=== PATIENT | female | born 1980 | race Caucasian/White ===

== ENCOUNTER 2019-08-19 22:39 | Emergency (ER) | payer SELFPAY ==
[~2019-08-19] VITALS: Ht 170.2 cm; Wt 63.5 kg
--- NOTE | 2019-08-19 22:39 | NUR ---
ED Nurse Note: pt CASIE HERNAN [id number] from [facility] [place] c/o abd px that radiates to back x 3 days. pt denies blood in urine at this time or dysuria. per EMS pt was vomiting on scene, she was seen at [facility] for similar symptoms yesterday. she also is c/o MAXWELL. pt ios very restless but follows commands and answers questions coherently
--- NOTE | 2019-08-19 22:43 | NUR ---
ED Nurse Note: pt able to ambulate to restroom with steady gait to obtain urine specimen. Dr. Graham placed 20 g IV to pt's L EJ. patent, intact and flushing well.
[2019-08-19] MEDS ORDERED: Morphine Sulfate 4mg/ml Inj (IV USE ONLY) IVP ONE (22:45)
[2019-08-19 22:53] VITALS: BP 145/105
--- NOTE | 2019-08-19 22:53 | Emergency Room Report ---
History of Present Illness General Chief Complaint: Abdominal Pain Source: Patient Present Illness HPI This is a 38-year-old female who has no medical history. She does have a history of anxiety. She presents with complaint abdominal pain. She said was ongoing for 3 days but she has continued vomiting. She also still having diarrhea now. She was just at [facility] last night. She claimed they did not do anything other give her Zofran pill and discharge her. She said pain is 10 out of 10. Diffuse in nature. Vomiting is nonbloody nonbilious. Now just retching. Diarrhea is watery. Denies any alcohol or drug use. I called [facility] and she was there last time and discharge this morning. She had work-up including blood work, urine and CT scan. They were negative. Patient said her symptoms only started 3 days ago. She is currently homeless and just moved here from [facility]. She says she never been to another hospital before this. Allergies: Coded Allergies: HALOPERIDOL (Verified Allergy, Unknown, 08/19/19) COVID-19 Screening Contact w/high risk pt: No Experienced COVID-19 symptoms?: No COVID-19 Testing performed TUBE ROLLER: No Patient History Past Medical History: see triage record, old chart reviewed, psych hx Past Surgical History: other - ectopic Pertinent Family History: none Social History: Denies: smoking, alcohol use, drug use Now: No Immunizations: other Reviewed Nursing Documentation: PMH: Agreed; PSxH: Agreed Review of Systems Eye: Denies: eye pain, blurred vision ENT: Denies: ear pain, nose congestion, throat swelling Respiratory: Denies: cough, shortness of breath Cardiovascular: Denies: chest pain, palpitations Gastrointestinal: Reports: abdominal pain, diarrhea, nausea, vomiting Musculoskeletal: Denies: back pain, joint pain Skin: Denies: rash Neurological: Denies: headache, numbness Endocrine: Denies: increased thirst, increased urine Hematologic/Lymphatic: Denies: easy bruising All Other Systems: negative except mentioned in HPI Physical Exam Vital Signs Date Time Temp Pulse Resp B/P (MAP) Pulse Ox O2 Delivery O2 Flow Rate FiO2 08/19/19 22:35 98.4 71 18 145/105 (118) 99 Room Air Vitals with high blood pressure Sp02 EP Interpretation: reviewed, normal General Appearance: well appearing, no apparent distress, alert Head: normocephalic, atraumatic Eyes: bilateral eye PERRL, bilateral eye EOMI ENT: hearing grossly normal, normal pharynx Neck: full range of motion, supple, no meningismus Respiratory: chest non-tender, lungs clear, normal breath sounds Cardiovascular #1: regular rate, rhythm, no murmur Gastrointestinal: normal bowel sounds, non tender, no mass, no organomegaly, no bruit, non-distended Musculoskeletal: back normal, normal range of motion, gait/station normal, other - She has scabbing all over her body on arms and legs from skin picking. She states she did this because she is nervous. Denies any meth use. Psychiatric: anxious Medical Decision Making Diagnostic Impression: Primary Impression: Abdominal pain Qualified Codes: R10.84 - Generalized abdominal pain Additional Impression: Nausea and vomiting in adult ER Course This patient presents with abdominal pain with nausea and vomiting. She has no vomiting here. Labs unremarkable. I did not do any CT because she just had one done 24 hours ago at [facility] and was normal. Patient hydrated here. Will discharge home. Last Vital Signs Date Time Temp Pulse Resp B/P (MAP) Pulse Ox O2 Delivery O2 Flow Rate FiO2 08/19/19 22:35 98.4 71 18 145/105 (118) 99 Room Air Status: improved Disposition: HOME, SELF-CARE Condition: Stable Scripts Ondansetron (Zofran) 4 Mg Tablet 4 MG ORAL Q6H PRN for Nausea & Vomiting, #10 TAB 0 Refills Prov: Ananda Graham MD 08/20/19 Patient Instructions: Abdominal Pain, Adult Additional Instructions: Advance diet as tolerated. Follow-up with your doctor in 7 days. Return if worse. Ananda Graham MD Aug 19, 2019 22:53
--- NOTE | 2019-08-19 23:00 | NUR ---
ED Nurse Note: pt states that she is here visiting from [place]. she appears to be disheveled with poor hygiene. many scabs are noted on her skin (face, arms, hands, legs). all blood work has been collected and sent to lab. pt appears to be asleep in bed with eyes closed, blankets provided for comfort
[2019-08-19 23:17] LABS: APPEARANCE,URINE CLEAR; BILIRUBIN, URINE NEGATIVE (NEGATIVE); GLUCOSE, URINE (UA) NEGATIVE (NEGATIVE); KETONES,URINE 2+ (NEGATIVE); LEUKOCYTE ESTERASE ,URINE 1+ (NEGATIVE); NITRITE,URINE NEGATIVE (NEGATIVE); PH,URINE 6.5 (4.5-8.0); PROTEIN,URINE 2+ (NEGATIVE); UROBILINOGEN,URINE NORMAL MG/DL (0.0-1.0)
[2019-08-19 23:20] LABS: COLOR,URINE YELLOW
[2019-08-19 23:21] LABS: BASOPHILS % (AUTO) 0.5 % (0.0-2.0); HEMATOCRIT 38.9 % (37.0-47.0); HEMOGLOBIN 13.4 G/DL (12.0-16.0); LYMPHOCYTES % (AUTO) 19.4 % (20.0-45.0); MEAN CORPUSCULAR VOLUME 91 FL (80-99); MONOCYTES % (AUTO) 5.4 % (1.0-10.0); NEUTROPHILS % (AUTO) 74.7 % (45.0-75.0); PLATELET COUNT 248 K/UL (150-450); RED BLOOD COUNT 4.29 M/UL (4.20-5.40); WHITE BLOOD COUNT 11.1 K/UL (4.8-10.8)
[2019-08-19 23:27] LABS: ANION GAP 10 mmol/L (5-15); BLOOD UREA NITROGEN 6 mg/dL (7-18); CALCIUM 8.7 MG/DL (8.5-10.1); CARBON DIOXIDE 24 MMOL/L (21-32); CHLORIDE 98 MMOL/L (98-107); CREATININE 0.7 MG/DL (0.55-1.30); POTASSIUM 3.6 MMOL/L (3.5-5.1); SODIUM 132 MMOL/L (136-145)
[2019-08-19 23:32] LABS: ALANINE AMINOTRANSFERASE 14 U/L (12-78); ALBUMIN 4.1 G/DL (3.4-5.0); ALBUMIN/GLOBULIN RATIO 1.3 (1.0-2.7); ALKALINE PHOSPHATASE 59 U/L (46-116); ASPARTATE AMINO TRANSFERASE 27 U/L (15-37); BILIRUBIN,TOTAL 0.5 MG/DL (0.2-1.0)
[2019-08-20] MEDS ORDERED: ZOFRAN4 MG ORAL (00:13)
[2019-08-20 00:23] VITALS: BP 145/105
--- NOTE | 2019-08-20 00:23 | NUR ---
ER DISCHARGE NOTE: Patient is cleared to be discharged per ERMD, pt is aox4, on room air, with stable vital signs. pt was given dc and prescription instructions, pt was able to verbalize understanding, pt id band and iv site removed without complications. pt is able to ambulate with steady gait. pt took all belongings.
== END 2019-08-20 00:25 | disposition home or self-care (01) ==
LOC: EDBD 22:39 → EMR 23:07
DX: R10.84 Generalized abdominal pain (principal); R11.2 Nausea with vomiting, unspecified; Z88.8 Allergy status to other drugs, medicaments and biological substances
CPT/HCPCS: 36415; 80053; 80307; 81003; 81025; 83690; 85025; 87086; 96361; 96374; 96375; 99284; J2270; J2405; J7030